=== PATIENT | female | born 1990 | race Caucasian/White ===

== ENCOUNTER 2019-08-30 21:45 | Inpatient (IN) | payer BC ==
[2019-08-30] MEDS: ELECTROLYTE-148 SOLN 1,000 ML IV SCH (23:00)
--- NOTE | 2019-08-30 23:23 | HP ---
Past Medical History - Primary Care Physician PCP:: Emily Taylor - Admission Chief Complaint: 29yo p0 @ 37.1 wks with LOF since 6pm, clear, no VB, no percieved ctx, +FM History of Present Illness: Uncomplicated PNC History Source: Patient, Medical Record Limitations to Obtaining History: No Limitations - Past Medical History ...: 1 ...Para: 0 ...Term: 0 ...: 0 ...Spon : 0 ...Induced : 0 ...LMP: 12/10/18 ... Weeks Gestation by Dates: 37.1 ...EDC by Dates: 09/19/19 - Past Surgical History Past Surgical History: Yes: None Hx Myomectomy: No Hx Transabdominal Cerclage: No - Smoking History Have you smoked in the past 12 months: No - Alcohol/Substance Use Hx Alcohol Use: No History of Substance Use: reports: None - Social History Usual Living Arrangement: Yes: With Spouse History of Recent Travel: No Home Medications - Allergies Allergies/Adverse Reactions: Allergies Allergy/AdvReac Type Severity Reaction Status Date / Time No Known Allergies Allergy Verified 08/30/19 23:59 - Home Medications Home Medications: Ambulatory Orders Vit 93/Iron Fum/Folic [ Formula Tablet] 1 tab PO DAILY Family Medical History Family Hx Cancer: Grandmother (maternal) (Breast CA) Review of Systems - Review of Systems Constitutional: reports: No Symptoms Eyes: reports: No Symptoms HENT: reports: No Symptoms Neck: reports: No Symptoms Cardiovascular: reports: No Symptoms Respiratory: reports: No Symptoms Gastrointestinal: reports: No Symptoms Genitourinary: reports: Other (LOF) Breasts: reports: No Symptoms Reported Musculoskeletal: reports: No Symptoms Integumentary: reports: No Symptoms Neurological: reports: No Symptoms Endocrine: reports: No Symptoms Hematology/Lymphatic: reports: No Symptoms Psychiatric: reports: No Symptoms Pain Intensity: 0 Physical Exam - Maternity Vital Signs: Vital Signs Temperature 98.6 F 08/30/19 22:00 Pulse Rate 65 08/30/19 22:00 Respiratory Rate 20 08/30/19 22:00 Blood Pressure 120/79 08/30/19 22:00 O2 Sat by Pulse Oximetry (%) Constitutional: Yes: Well Nourished, No Distress, Calm Eyes: Yes: WNL, Conjunctiva Clear, EOM Intact HENT: Yes: WNL, Atraumatic, Normocephalic Neck: Yes: WNL, Supple, Trachea Midline Cardiovascular: Yes: WNL, Regular Rate and Rhythm Lungs: Clear to auscultation Breast(s): Yes: WNL - Abdominal Exam/OB Fundal Height: 37 (EFW 6.5lb) Number of Fetuses: Single Presentation: Vertex Contractions: Yes Regularity: Irregular Intensity: Mild Monitor Mode: External Heart Rate (range): 140 Heart Rate Location: Midline Category: I Accelerations: Uniform Decelerations: None - Vaginal Exam/OB Vaginal Bleediing: No Speculum Exam: No Dilatation (cm): 3 Effacement (%): 50% Amniotic Membrane Status: Ruptured Nitrazine Test: Positive Amniotic Fluid: Yes: Clear Presentation: Vertex/Position Station: -2 - Physical Exam Musculoskeletal: Yes: WNL Extremities: Yes: WNL Edema: No Integumentary: Yes: WNL Deep Tendon Reflex Grade: Normal +2 ...Motor Strength: WNL Psychiatric: Yes: WNL, Alert, Oriented Assessment/Plan 29yo P0 @ 37.1 wks with PROM in early labor GBS neg - no need for prophylaxis Admit to L&D IVF, Labs, NPO Start Pitocin to augment labor Pain managment discussed will give as per patient request
[2019-08-30] MEDS ORDERED: BUTORPHANOL TARTRATE 1 MG/ML VIAL IVPB ONE (23:24)
[2019-08-30] MEDS ORDERED: PROMETHAZINE HCL 25 MG/1 ML VIAL IVPUSH ONE (23:24)
[2019-08-30 23:50] LABS: BASO % 0.5 % (0-2.0); EOS % 0.6 % (0-4.5); HEMATOCRIT 34.7 % (32.4-45.2); HEMOGLOBIN 11.8 GM/dL (10.7-15.3); LYMPH % 14.2 % (8-40); MCH 31.8 pg (25.7-33.7); MEAN CELL VOLUME 93.4 fl (80-96); MEAN PLT VOLUME 8.6 fl (7.5-11.1); NEUT % 77.7 % (42.8-82.8); PLATELET COUNT 183 K/MM3 (134-434); RBC 3.71 M/mm3 (3.60-5.2); WHITE BLOOD COUNT 12.9 K/mm3 (4.0-10.0)
[2019-08-31 00:04] LABS: INR 0.96 (0.83-1.09); PROTHROMBIN TIME (PATIENT) 11.3 SEC (9.7-13.0)
[2019-08-31 00:06] LABS: ACTIVATED PTT 26.7 SECONDS (25.2-36.5); BLOOD UREA NITROGEN 10.2 mg/dL (7-18); CALCIUM 8.3 mg/dL (8.5-10.1); CREATININE 0.5 mg/dL (0.55-1.3); POTASSIUM 3.8 mmol/L (3.5-5.1)
[2019-08-31 00:30] VITALS: BMI 31.6
[2019-08-31] MEDS ORDERED: OXYTOCIN 30 UNITS in 0.9% NS 30 UNIT/500 ML INFUS.BAG IVPB ONE (00:33)
[2019-08-31] MEDS: OXYTOCIN 30 UNITS in 0.9% NS 30 UNIT/500 ML INFUS.BAG IVPB SCH (00:35)
[2019-08-31] MEDS ORDERED: BUTORPHANOL TARTRATE 1 MG/ML VIAL ONE ×2 (03:47)
[2019-08-31] MEDS ORDERED: PROMETHAZINE HCL 25 MG/1 ML VIAL ONE (03:47)
[2019-08-31] MEDS ORDERED: FENTANYL/BUPIVACAINE/NS/PF - PCEA - 50 ML DISP.SYRIN EP ONE (05:41)
[2019-08-31] MEDS ORDERED: LIDO 2%/EPI 1:200000 PRESRVFRE (20 ML SDVIAL) ONE (05:50)
[2019-08-31] MEDS: FENTANYL/BUPIVACAINE/NS/PF - PCEA - 50 ML DISP.SYRIN EP SCH (06:05)
[2019-08-31] MEDS ORDERED: NALOXONE HCL 0.4 MG/ML VIAL IVPUSH PRN (06:14)
[2019-08-31] MEDS ORDERED: OXYTOCIN 20 UNITS in 0.9% NS 20 UNIT/1,000 ML INFUS.BAG IV ONE (06:29)
[2019-08-31] MEDS ORDERED: LIDOCAINE HCL 1% PRESERVATIVE FREE - 30ML VIAL ONE (06:30)
[2019-08-31] MEDS ORDERED: BISACODYL 10 MG SUPP.RECT RC PRN (08:38)
[2019-08-31] MEDS ORDERED: WITCH HAZEL 50% (TUCKS) 40 PAD/JAR PAD TP PRN (08:38)
[2019-08-31] MEDS ORDERED: BENZOCAINE 20% 57 GM BOTTLE TP PRN (08:38)
[2019-08-31] MEDS ORDERED: METHYLERGONOVINE MALEATE 0.2 MG/1 ML AMP IM PRN (08:38)
[2019-08-31] MEDS ORDERED: BENZOCAINE 28 GM HEMORRHOIDAL OINTMENT TP PRN (08:38)
--- NOTE | 2019-08-31 08:38 | PN ---
Delivery - Delivery Vaginal Delivery: No Problems Type of Anesthesia: Local, Epidural Episiotomy/Laceration: Midline, 2nd degree EBL (cc): 300 Delivery, Single - Stages of Labor Date 1st Stage Initiatied: 08/30/19 Time 1st Stage Initiated: 22:00 Date 2nd Stage Initiated: 08/31/19 Time 2nd Stage Initiated: 06:15 Date of Delivery: 08/31/19 Time of Delivery: 07:59 Date Placenta Delivered: 08/31/19 Time Placenta Delivered: 08:07 Placenta: Yes: Spontaneous - Condition of Infant Wafer Fabricator/Dairy Technologist Present: No Gender: Female Weight: 6 lb 8 oz Position: Left, OA - 1 Minute Total Score: 9 5 Minutes Total Score: 9 - [place] Feeding Plan Initial Plan: Elected not to breastfeed exclusively throughout hospitalization Benefits of Exclusively reinforced: Yes
[2019-08-31] MEDS ORDERED: D5W-LR W/ 20 UNITS OXYTOCIN 20 UNIT/1,000 ML INFUS.BAG IV SCH (08:45)
[2019-08-31] MEDS ORDERED: IBUPROFEN 600 MG TABLET (FP) PO ONE (09:53)
[2019-08-31] MEDS ORDERED: ACETAMINOPHEN 325 MG TABLET (FP) ONE (09:53)
[2019-08-31] MEDS: IBUPROFEN 600 MG TABLET (FP) PO PRN ×4 (09:59→21:43)
[2019-08-31] MEDS: ACETAMINOPHEN 325 MG TABLET (FP) PO PRN ×4 (09:59→21:43)
[2019-08-31] MEDS: PRENATAL VITAMINS W/ FOLIC ACID TABLET (FP) PO SCH (13:21)
[2019-08-31] MEDS: FERROUS SO4 325 MG TABLET (FP) PO SCH ×2 (13:21→21:43)
[2019-09-01] MEDS: ACETAMINOPHEN 325 MG TABLET (FP) PO PRN ×5 (01:35→22:00)
[2019-09-01] MEDS: IBUPROFEN 600 MG TABLET (FP) PO PRN ×5 (01:35→21:59)
[2019-09-01 08:07] LABS: BASO % 0.7 % (0-2.0); EOS % 0.7 % (0-4.5); HEMATOCRIT 30.7 % (32.4-45.2); HEMOGLOBIN 10.6 GM/dL (10.7-15.3); LYMPH % 11.7 % (8-40); MCH 32.2 pg (25.7-33.7); MCHC 34.4 g/dl (32.0-36.0); MEAN CELL VOLUME 93.7 fl (80-96); MEAN PLT VOLUME 8.3 fl (7.5-11.1); MONO % 7.5 % (3.8-10.2); NEUT % 79.4 % (42.8-82.8); PLATELET COUNT 161 K/MM3 (134-434); RBC 3.28 M/mm3 (3.60-5.2); RDW 13.3 % (11.6-15.6); WHITE BLOOD COUNT 12.2 K/mm3 (4.0-10.0)
[2019-09-01 08:52] LABS: POC NITRAZINE POS
--- NOTE | 2019-09-01 08:58 | PN ---
Post Progress Note - Subjective Subjective: Pt w/o complaints. Feels well. Ambulating Reports breast feeding and bottle. Reports scant lochia Post Day: 2 Type of Delivery: Vital Signs: Vital Signs Temperature 97.5 F L 09/01/19 06:00 Pulse Rate 80 09/01/19 06:00 Respiratory Rate 18 09/01/19 06:00 Blood Pressure 106/57 L 09/01/19 06:00 O2 Sat by Pulse Oximetry (%) 100 08/31/19 09:00 Breast Exam: Yes: Soft Uterus: Yes: Fundus Firm, Fundus below umbilicus Abdomen/GI: Yes: Abdomen soft Lochia: Yes: Rubra Lochia, amount: Small Extremities: Yes: Calves non-tender Perineum: Yes: Intact Activity: Ambulating - Labs Labs: CBC WBC 12.2 K/mm3 (4.0-10.0) H 09/01/19 07:33 RBC 3.28 M/mm3 (3.60-5.2) L 09/01/19 07:33 Hgb 10.6 GM/dL (10.7-15.3) L 09/01/19 07:33 Hct 30.7 % (32.4-45.2) L 09/01/19 07:33 MCV 93.7 fl (80-96) 09/01/19 07:33 MCH 32.2 pg (25.7-33.7) 09/01/19 07:33 MCHC 34.4 g/dl (32.0-36.0) 09/01/19 07:33 RDW 13.3 % (11.6-15.6) 09/01/19 07:33 Plt Count 161 K/MM3 (134-434) 09/01/19 07:33 MPV 8.3 fl (7.5-11.1) 09/01/19 07:33 Absolute Neuts (auto) 9.7 K/mm3 (1.5-8.0) H 09/01/19 07:33 Neutrophils % 79.4 % (42.8-82.8) 09/01/19 07:33 Lymphocytes % 11.7 % (8-40) 09/01/19 07:33 Monocytes % 7.5 % (3.8-10.2) 09/01/19 07:33 Eosinophils % 0.7 % (0-4.5) 09/01/19 07:33 Basophils % 0.7 % (0-2.0) 09/01/19 07:33 Nucleated RBC % 0 % (0-0) 09/01/19 07:33 Assessment/Plan 29yo s/p , doing well stable, afebrile. Asymptomatic for anemia. care instructions reviewed. Continue routine care. Ambulation encouraged Discharge instruction reviewed.
--- NOTE | 2019-09-01 09:11 | DS ---
Physical Exam-BUILDING SERVICES COORDINATOR Vital Signs: Vital Signs Temperature 97.5 F L 09/01/19 06:00 Pulse Rate 80 09/01/19 06:00 Respiratory Rate 18 09/01/19 06:00 Blood Pressure 106/57 L 09/01/19 06:00 O2 Sat by Pulse Oximetry (%) 100 08/31/19 09:00 Constitutional: Yes: Well Nourished, No Distress, Calm Eyes: Yes: WNL, Conjunctiva Clear, EOM Intact HENT: Yes: WNL, Atraumatic, Normocephalic Neck: Yes: WNL, Supple, Trachea Midline Cardiovascular: Yes: WNL, Regular Rate and Rhythm Respiratory: Yes: WNL, Regular, CTA Bilaterally Gastrointestinal: Yes: WNL, Normal Bowel Sounds, Soft ...Rectal Exam: Yes: WNL Renal/: Yes: WNL ....Post : Yes: Uterus firm, Uterus non-tender, Slight lochia rubra Breast(s): Yes: WNL Musculoskeletal: Yes: WNL Extremities: Yes: WNL Edema: No Integumentary: Yes: WNL Neurological: Yes: WNL, Alert, Oriented ...Motor Strength: WNL Psychiatric: Yes: WNL, Alert, Oriented Labs: CBC, BMP 09/01/19 07:33 08/30/19 23:25 Delivery - Delivery Vaginal Delivery: No Problems, Spontaneous Type of Anesthesia: Local, Epidural Episiotomy/Laceration: Midline, 2nd degree EBL (cc): 300 Delivery, Single - Stages of Labor Date 1st Stage Initiatied: 08/30/19 Time 1st Stage Initiated: 22:00 Date 2nd Stage Initiated: 08/31/19 Time 2nd Stage Initiated: 06:15 Date of Delivery: 08/31/19 Time of Delivery: 07:59 Time Placenta Delivered: 08:07 Placenta: Yes: Spontaneous - Condition of Light Rail Transit Operator/Hypo Dipper Present: No Gender: Female Weight: 2.948 kg Position: Left, OA Total Hours ROM (Hrs/Mins): 14x4fol - 1 Minute Total Score: 9 5 Minutes Total Score: 9 - [place] Feeding Plan Initial Plan: Elected not to breastfeed exclusively throughout hospitalization Benefits of Exclusively reinforced: Yes Discharge Summary Problems reviewed: Yes Reason For Visit: LABOR Labor at term Procedures: Principal: Hospital Course: Normal recovery Condition: Good - Instructions Diet, Activity, Other Instructions: Physical activity Resume your normal everyday activity as tolerated no heavy lifting or exercise until seen by your surgeon. You may walk unlimited shahriar of and climb stairs. You may resume driving the car when you feel safe and comfortable behind the wheel. No sexual activity as instructed. Wound care If you have a bandage, leave it on, and keep dry for 48-72 hours. After that time discard the outer bandage. If they are tapes on the skin under the out of bandage leave them in place. They will peel off in the next 7 to 10 days. Do Not Peel them off. You may shower the day after surgery. If there are tapes present on the skin, you may shower over them. Diet There are no dietary restrictions. Eat healthy, high-fiber foods. Drink 6 to 8 glasses of liquid each day. This will assist in keeping your bowels are regular. Pain management You may take Tylenol or acetaminophen or Ibuprofen (for example, Motrin, Advil etc.) from my pain prescription medication is ordered should be taken as prescribed for moderate to severe pain. Call MD for any of the following: Severe pain not relieved by medication Fever of 101 or higher Excessive bleeding or drainage on dressing Inability to urinate Referrals: Keely Alfonso MD [Staff Physician] - Disposition: HOME - Home Medications Comprehensive Discharge Medication List: Ambulatory Orders Vit 93/Iron Fum/Folic [ Formula Tablet] 1 tab PO DAILY Prescription Drug Monitoring Program (I-STOP) results: I-STOP not reviewed
[2019-09-01] MEDS: FENTANYL/BUPIVACAINE/NS/PF - PCEA - 50 ML DISP.SYRIN EP SCH (09:16)
[2019-09-01] MEDS: PRENATAL VITAMINS W/ FOLIC ACID TABLET (FP) PO SCH (09:50)
[2019-09-01] MEDS: FERROUS SO4 325 MG TABLET (FP) PO SCH ×2 (09:50→21:59)
[2019-09-01] MEDS: OXYTOCIN 30 UNITS in 0.9% NS 30 UNIT/500 ML INFUS.BAG IVPB SCH (20:40)
[2019-09-01] MEDS: ELECTROLYTE-148 SOLN 1,000 ML IV SCH (20:40)
[2019-09-01] MEDS ORDERED: SENNOSIDES/DOCUSATE COMBO (SENNA PLUS) TABLET (UD) PO PRN (22:00)
[2019-09-02] MEDS: IBUPROFEN 600 MG TABLET (FP) PO PRN (06:12)
[2019-09-02] MEDS: ACETAMINOPHEN 325 MG TABLET (FP) PO PRN (06:12)
--- NOTE | 2019-09-02 07:42 | PN ---
Post Progress Note - Subjective Subjective: Patient without acute complaints. Reports tolerating oral intake without nausea or vomiting. Ambulating without dizziness. Denies fevers or chills. Pain well controlled with oral pain medication. without difficulty. Passing flatus. Post Day: 2 Type of Delivery: Vital Signs: Vital Signs Temperature 97.7 F 09/01/19 22:00 Pulse Rate 74 09/01/19 22:00 Respiratory Rate 18 09/01/19 22:00 Blood Pressure 123/78 09/01/19 22:00 O2 Sat by Pulse Oximetry (%) 100 08/31/19 09:00 Breast Exam: Yes: Soft Uterus: Yes: Fundus Firm, Fundus below umbilicus Abdomen/GI: Yes: Abdomen soft, Passing flatus, Tolerating PO. No: Abdominal Distention, Tender Lochia: Yes: Rubra Lochia, amount: Moderate Extremities: Yes: Calves non-tender. No: Edema Activity: Ambulating - Labs Labs: CBC WBC 12.2 K/mm3 (4.0-10.0) H 09/01/19 07:33 RBC 3.28 M/mm3 (3.60-5.2) L 09/01/19 07:33 Hgb 10.6 GM/dL (10.7-15.3) L 09/01/19 07:33 Hct 30.7 % (32.4-45.2) L 09/01/19 07:33 MCV 93.7 fl (80-96) 09/01/19 07:33 MCH 32.2 pg (25.7-33.7) 09/01/19 07:33 MCHC 34.4 g/dl (32.0-36.0) 09/01/19 07:33 RDW 13.3 % (11.6-15.6) 09/01/19 07:33 Plt Count 161 K/MM3 (134-434) 09/01/19 07:33 MPV 8.3 fl (7.5-11.1) 09/01/19 07:33 Absolute Neuts (auto) 9.7 K/mm3 (1.5-8.0) H 09/01/19 07:33 Neutrophils % 79.4 % (42.8-82.8) 09/01/19 07:33 Lymphocytes % 11.7 % (8-40) 09/01/19 07:33 Monocytes % 7.5 % (3.8-10.2) 09/01/19 07:33 Eosinophils % 0.7 % (0-4.5) 09/01/19 07:33 Basophils % 0.7 % (0-2.0) 09/01/19 07:33 Nucleated RBC % 0 % (0-0) 09/01/19 07:33 Assessment/Plan 29 yo PPD # 2 s/p , afebrile, vital signs stable, doing well 1. Patient stable for discharge home today. 2. Patient encouraged to contact MD for: - Severe pain not controlled by oral pain medication - Fevers or chills - Nausea or vomiting, intolerance of oral intake 3. Patient to follow up in office in 4-6 weeks for visit
[2019-09-02] MEDS: FERROUS SO4 325 MG TABLET (FP) PO SCH (10:06)
[2019-09-02] MEDS: PRENATAL VITAMINS W/ FOLIC ACID TABLET (FP) PO SCH (10:06)
[2019-09-02 16:38] VITALS: BP 118/76; PULSE 70; TEMP 98
== END 2019-09-02 11:00 | disposition home or self-care (01) | DRG 807 ==
LOC: JDEL 21:45 → JLDR 22:00 → J3W 08-31 10:15
PROVIDERS: ADMIT Obstetrics & Gynecology; ATTEND Obstetrics & Gynecology
PROC: 0KQM0ZZ Repair Perineum Muscle, Open Approach (ICD-10-PCS; principal; 2019-08-31)
PROC: 10E0XZZ Delivery of Products of Conception, External Approach (ICD-10-PCS; 2019-08-31)
DX: O70.1 Second degree perineal laceration during delivery (principal); Z37.0 Single live birth; Z3A.37 37 weeks gestation of pregnancy
CPT/HCPCS: 36415; 36600; 59025; 59409; 80048; 82803; 83986-QW; 85025; 85610; 85730; 86593; 86850; 86900; 86901

== ENCOUNTER 2020-11-17 05:52 | Inpatient (IN) | payer BC ==
[2020-11-17] MEDS ORDERED: ELECTROLYTE-148 SOLN 1,000 ML IV SCH (07:45)
[2020-11-17 08:11] VITALS: BMI 32.1
[2020-11-17 08:18] LABS: BASO % 0.3 % (0-2.0); EOS % 0.1 % (0-4.5); HEMATOCRIT 32.2 % (32.4-45.2); HEMOGLOBIN 11.5 GM/dL (10.7-15.3); LYMPH % 9.3 % (8-40); MCHC 35.7 g/dl (32.0-36.0); MEAN CELL VOLUME 95.3 fl (80-96); MEAN PLT VOLUME 8.7 fl (7.5-11.1); MONO % 5.5 % (3.8-10.2); NEUT % 84.8 % (42.8-82.8); PLATELET COUNT 162 K/MM3 (134-434); RBC 3.38 M/mm3 (3.60-5.2); RDW 12.8 % (11.6-15.6); WHITE BLOOD COUNT 12.9 K/mm3 (4.0-10.0)
[2020-11-17 08:19] LABS: INR 0.98 (0.83-1.09); PROTHROMBIN TIME (PATIENT) 11.9 SEC (9.7-13.0)
[2020-11-17 08:22] LABS: ACTIVATED PTT 24.7 SECONDS (25.2-36.5)
[2020-11-17 08:24] LABS: CALCIUM 7.8 mg/dL (8.5-10.1)
[2020-11-17 08:25] LABS: BLOOD UREA NITROGEN 9.9 mg/dL (7-18)
[2020-11-17 08:28] LABS: CREATININE 0.6 mg/dL (0.55-1.3)
[2020-11-17] MEDS ORDERED: PCA PUMP NR ONE (09:11)
[2020-11-17] MEDS ORDERED: FENTANYL/BUPIVACAINE/NS/PF - PCEA - 50 ML DISP.SYRIN EP ONE (09:11)
[2020-11-17] MEDS ORDERED: BUPIVACAINE HCL/PF 0.25% (2.5MG/ML) 10 ML VIAL ONE (09:13)
[2020-11-17] MEDS ORDERED: NALOXONE HCL 0.4 MG/ML VIAL IVPUSH PRN ×2 (10:53→10:54)
[2020-11-17] MEDS ORDERED: FENTANYL/BUPIVACAINE/NS/PF - PCEA - 50 ML DISP.SYRIN EP SCH ×2 (11:00)
[2020-11-17] MEDS ORDERED: OXYTOCIN 30 UNITS in 0.9% NS 30 UNIT/500 ML INFUS.BAG IVPB ONE (11:08)
[2020-11-17] MEDS ORDERED: OXYTOCIN 30 UNITS in 0.9% NS 30 UNIT/500 ML INFUS.BAG IVPB SCH (11:15)
[2020-11-17] MEDS ORDERED: OXYTOCIN 20 UNITS in 0.9% NS 20 UNIT/1,000 ML INFUS.BAG IV ONE (13:58)
[2020-11-17] MEDS ORDERED: WITCH HAZEL 50% (TUCKS) 40 PAD/JAR PAD TP PRN (14:50)
[2020-11-17] MEDS ORDERED: BENZOCAINE 28 GM HEMORRHOIDAL OINTMENT TP PRN (14:50)
[2020-11-17] MEDS ORDERED: METHYLERGONOVINE MALEATE 0.2 MG/1 ML AMP IM PRN (14:50)
[2020-11-17] MEDS ORDERED: BISACODYL 10 MG SUPP.RECT RC PRN (14:50)
[2020-11-17] MEDS ORDERED: BENZOCAINE 20% 57 GM BOTTLE TP PRN (14:50)
[2020-11-17] MEDS ORDERED: OXYTOCIN 20 UNITS in 0.9% NS 20 UNIT/1,000 ML INFUS.BAG IV SCH (15:00)
[2020-11-17] MEDS ORDERED: IBUPROFEN 600 MG TABLET (FP) PO ONE (16:14)
[2020-11-17] MEDS ORDERED: ACETAMINOPHEN 325 MG TABLET (FP) ONE (16:14)
[2020-11-17] MEDS: ACETAMINOPHEN 325 MG TABLET (FP) PO PRN ×2 (16:15→21:32)
[2020-11-17] MEDS: IBUPROFEN 600 MG TABLET (FP) PO PRN ×2 (16:15→21:33)
[2020-11-17] MEDS: FERROUS SO4 325 MG TABLET (FP) PO SCH (18:26)
[2020-11-18] MEDS: ACETAMINOPHEN 325 MG TABLET (FP) PO PRN ×3 (02:40→21:25)
[2020-11-18] MEDS: IBUPROFEN 600 MG TABLET (FP) PO PRN ×3 (02:40→21:25)
[2020-11-18 07:20] LABS: BASO % 0.7 % (0-2.0); HEMATOCRIT 30.6 % (32.4-45.2); HEMOGLOBIN 10.8 GM/dL (10.7-15.3); LYMPH % 13.1 % (8-40); MCH 34.3 pg (25.7-33.7); MCHC 35.4 g/dl (32.0-36.0); MEAN CELL VOLUME 96.9 fl (80-96); MEAN PLT VOLUME 8.8 fl (7.5-11.1); MONO % 7.3 % (3.8-10.2); NEUT % 77.9 % (42.8-82.8); PLATELET COUNT 146 K/MM3 (134-434); RBC 3.16 M/mm3 (3.60-5.2); WHITE BLOOD COUNT 10.3 K/mm3 (4.0-10.0)
[2020-11-18] MEDS: PRENATAL VITAMINS W/ FOLIC ACID TABLET (FP) PO SCH (10:34)
[2020-11-18] MEDS: FERROUS SO4 325 MG TABLET (FP) PO SCH ×2 (10:34→18:22)
[2020-11-18] MEDS ORDERED: FENTANYL/BUPIVACAINE/NS/PF - PCEA - 50 ML DISP.SYRIN EP SCH (11:00)
[2020-11-18] MEDS ORDERED: SENNOSIDES/DOCUSATE COMBO (SENNA PLUS) TABLET (UD) PO PRN (22:00)
[2020-11-19] MEDS: ACETAMINOPHEN 325 MG TABLET (FP) PO PRN (05:48)
[2020-11-19] MEDS: IBUPROFEN 600 MG TABLET (FP) PO PRN (05:48)
[2020-11-19 09:07] VITALS: BP 121/71; PULSE 79; TEMP 97.7
[2020-11-19] MEDS: FERROUS SO4 325 MG TABLET (FP) PO SCH (09:35)
[2020-11-19] MEDS: PRENATAL VITAMINS W/ FOLIC ACID TABLET (FP) PO SCH (09:35)
== END 2020-11-19 11:30 | disposition home or self-care (01) | DRG 807 ==
LOC: JDEL 05:52 → JLDR 06:45 → J3W 19:57
PROVIDERS: ADMIT Obstetrics & Gynecology; ATTEND Obstetrics & Gynecology
PROC: 10E0XZZ Delivery of Products of Conception, External Approach (ICD-10-PCS; principal; 2020-11-17)
PROC: 0W8NXZZ Division of Female Perineum, External Approach (ICD-10-PCS; 2020-11-17)
DX: O80 Encounter for full-term uncomplicated delivery (principal); Z37.0 Single live birth; Z3A.37 37 weeks gestation of pregnancy
CPT/HCPCS: 36415; 59409; 80048; 85025; 85610; 85730; 86780; 86850; 86900; 86901; C9803; U0003

== ENCOUNTER 2022-09-14 15:00 | Inpatient (IN) | payer BC ==
[2022-09-14] MEDS: ELECTROLYTE-148 SOLN 1,000 ML IV SCH ×2 (15:30→18:00)
[2022-09-14 15:38] LABS: BASO % 0.5 % (0-2.0); EOS % 0.2 % (0-4.5); HEMATOCRIT 33.1 % (32.4-45.2); HEMOGLOBIN 11.8 GM/dL (10.7-15.3); LYMPH % 12.9 % (8-40); MCH 33.7 pg (25.7-33.7); MCHC 35.7 g/dl (32.0-36.0); MEAN CELL VOLUME 94.3 fl (80-96); MEAN PLT VOLUME 7.8 fl (7.5-11.1); MONO % 6.2 % (3.8-10.2); NEUT % 80.2 % (42.8-82.8); PLATELET COUNT 190 10^3/uL (134-434); RBC 3.51 M/mm3 (3.60-5.2); WHITE BLOOD COUNT 10.2 K/mm3 (4.0-10.0)
[2022-09-14 15:43] LABS: INR 0.97 (0.83-1.09); PROTHROMBIN TIME (PATIENT) 11.1 SEC (9.7-13.0)
[2022-09-14 15:46] LABS: ACTIVATED PTT 28.1 SECONDS (25.2-36.5)
[2022-09-14 16:10] LABS: BLOOD UREA NITROGEN 8.9 mg/dL (7-18); CALCIUM 8.1 mg/dL (8.5-10.1)
[2022-09-14 16:13] LABS: CREATININE 0.6 mg/dL (0.55-1.3)
[2022-09-14 16:21] VITALS: BMI 33.5
[2022-09-14] MEDS ORDERED: FENTANYL/BUPIVACAINE/NS/PF - PCEA - 50 ML DISP.SYRIN EP ONE (17:42)
[2022-09-14] MEDS ORDERED: NALOXONE HCL 0.4 MG/ML VIAL IVPUSH PRN (18:17)
[2022-09-14] MEDS ORDERED: FENTANYL/BUPIVACAINE/NS/PF - PCEA - 50 ML DISP.SYRIN EP SCH (18:30)
[2022-09-14] MEDS ORDERED: ACETAMINOPHEN 325 MG TABLET (FP) PO PRN (19:18)
[2022-09-14] MEDS ORDERED: oxyCODONE HCL 5 MG TABLET PO PRN (19:18)
[2022-09-14] MEDS ORDERED: METHYLERGONOVINE MALEATE 0.2 MG/1 ML AMP IM PRN (19:18)
[2022-09-14] MEDS ORDERED: WITCH HAZEL 50% (TUCKS) 40 PAD/JAR PAD TP PRN (19:18)
[2022-09-14] MEDS ORDERED: BISACODYL 10 MG SUPP.RECT RC PRN (19:18)
[2022-09-14] MEDS ORDERED: BENZOCAINE 28 GM HEMORRHOIDAL OINTMENT TP PRN (19:18)
[2022-09-14] MEDS ORDERED: BENZOCAINE 20% 57 GM BOTTLE TP PRN (19:18)
[2022-09-14] MEDS ORDERED: OXYTOCIN 20 UNITS in 0.9% NS 20 UNIT/1,000 ML INFUS.BAG IV SCH (19:30)
[2022-09-14] MEDS ORDERED: OXYTOCIN 30 UNITS in 0.9% NS 30 UNIT/500 ML INFUS.BAG IVPB SCH (19:30)
[2022-09-14] MEDS ORDERED: OXYTOCIN 20 UNITS in 0.9% NS 20 UNIT/1,000 ML INFUS.BAG IV ONE (21:32)
[2022-09-14] MEDS ORDERED: LIDOCAINE HCL 1% PRESERVATIVE FREE - 30ML VIAL ONE (21:45)
[2022-09-14 22:44] LABS: CORD BASE EXCESS -1.3 mmol/L (0-2); CORD HCO3 24.2 mmHg (20-29); CORD PCO2 43.4 mmHg (30-78); CORD pH 7.364 (7.14-7.44)
[2022-09-14 22:47] LABS: CORD HCO3 22.8 mmHg (20-29); CORD PCO2 46.7 mmHg (30-78); CORD pH 7.306 (7.14-7.44)
[2022-09-15] MEDS: IBUPROFEN 600 MG TABLET (FP) PO PRN ×4 (05:56→23:23)
[2022-09-15 09:08] LABS: BASO % 0.4 % (0-2.0); EOS % 0.4 % (0-4.5); HEMATOCRIT 31.7 % (32.4-45.2); HEMOGLOBIN 11.4 GM/dL (10.7-15.3); MCH 33.9 pg (25.7-33.7); MEAN CELL VOLUME 94.3 fl (80-96); MEAN PLT VOLUME 7.5 fl (7.5-11.1); MONO % 6.4 % (3.8-10.2); NEUT % 81.8 % (42.8-82.8); PLATELET COUNT 165 10^3/uL (134-434); RBC 3.36 M/mm3 (3.60-5.2)
[2022-09-15] MEDS: PRENATAL VITAMINS W/ FOLIC ACID TABLET (FP) PO SCH (09:52)
[2022-09-15] MEDS ORDERED: FLU VACC QS2022-23(6MOS UP)/PF 60 MCG/0.5 ML SYRINGE IM ONE (10:00)
[2022-09-15 17:47] VITALS: RESP 18
[2022-09-15] MEDS ORDERED: SENNOSIDES/DOCUSATE COMBO (SENNA PLUS) TABLET (UD) PO PRN (22:00)
[2022-09-16] MEDS: IBUPROFEN 600 MG TABLET (FP) PO PRN ×2 (05:21→09:29)
[2022-09-16 09:07] VITALS: BP 114/81; PULSE 81; TEMP 98
[2022-09-16] MEDS: PRENATAL VITAMINS W/ FOLIC ACID TABLET (FP) PO SCH (09:29)
== END 2022-09-16 12:25 | disposition home or self-care (01) | DRG 807 ==
LOC: JLDR 15:00 → J3W 09-15 00:04
PROVIDERS: ADMIT Obstetrics & Gynecology; ATTEND Obstetrics & Gynecology
PROC: 10E0XZZ Delivery of Products of Conception, External Approach (ICD-10-PCS; principal; 2022-09-14)
PROC: 0KQM0ZZ Repair Perineum Muscle, Open Approach (ICD-10-PCS; 2022-09-14)
PROC: 10907ZC Drainage of Amniotic Fluid, Therapeutic from Products of Conception, Via Natural or Artificial Opening (ICD-10-PCS; 2022-09-14)
PROC: 0W8NXZZ Division of Female Perineum, External Approach (ICD-10-PCS; 2022-09-14)
DX: O62.0 Primary inadequate contractions (principal); Z37.0 Single live birth; O70.1 Second degree perineal laceration during delivery; Z3A.38 38 weeks gestation of pregnancy
CPT/HCPCS: 36415; 36600; 59025; 59409; 80048; 82803; 85025; 85610; 85730; 86780; 86850; 86900; 86901; C9803-CS; Q2036; U0003; U0005

== ENCOUNTER 2024-12-25 | Inpatient (IN) | payer BC ==
[2024-12-25] MEDS ORDERED: BISACODYL 10 MG SUPP.RECT RC PRN (01:36)
[2024-12-25] MEDS ORDERED: METHYLERGONOVINE MALEATE 0.2 MG/1 ML AMP IM PRN (01:36)
[2024-12-25] MEDS ORDERED: oxyCODONE HCL 5 MG TABLET PO PRN (01:36)
[2024-12-25] MEDS: OXYTOCIN 20 UNITS in 0.9% NS 20 UNIT/1,000 ML INFUS.BAG IV SCH (01:45)
[2024-12-25] MEDS ORDERED: IBUPROFEN 600 MG TABLET (FP) PO ONE (02:00)
[2024-12-25] MEDS: IBUPROFEN 600 MG TABLET (FP) PO PRN (02:03)
[2024-12-25 02:22] LABS: BASO % 0.3 % (0-2.0); EOS % 0.6 % (0-4.5); HEMATOCRIT 32.4 % (32.4-45.2); HEMOGLOBIN 11.2 GM/dL (10.7-15.3); LYMPH % 9.7 % (8-40); MCH 33.2 pg (25.7-33.7); MCHC 34.5 g/dl (32.0-36.0); MEAN CELL VOLUME 96.4 fl (80-96); MEAN PLT VOLUME 8.6 fl (7.5-11.1); MONO % 5.7 % (3.8-10.2); NEUT % 83.7 % (42.8-82.8); PLATELET COUNT 170 10^3/uL (134-434); RBC 3.36 M/mm3 (3.60-5.2); RDW 13.8 % (11.6-15.6); WHITE BLOOD COUNT 15.1 K/mm3 (4.0-10.0)
[2024-12-25 02:35] VITALS: BMI 31.5
[2024-12-25 02:36] LABS: INR 0.94 (0.83-1.09); PROTHROMBIN TIME (PATIENT) 10.3 SEC (9.7-13.0)
[2024-12-25 02:39] LABS: ACTIVATED PTT 24.9 SECONDS (25.2-36.5)
[2024-12-25 02:55] LABS: CALCIUM 8.3 mg/dL (8.5-10.1)
[2024-12-25 02:56] LABS: BLOOD UREA NITROGEN 13.8 mg/dL (7-18)
[2024-12-25 02:59] LABS: CREATININE 0.7 mg/dL (0.55-1.3)
[2024-12-25] MEDS ORDERED: ACETAMINOPHEN 325 MG TABLET (FP) ONE (03:28)
[2024-12-25] MEDS: ACETAMINOPHEN 325 MG TABLET (FP) PO PRN (03:30)
[2024-12-25] MEDS: WITCH HAZEL 50% (TUCKS) 40 PAD/JAR PAD TP PRN (04:12)
[2024-12-25] MEDS: BENZOCAINE 20% 57 GM BOTTLE TP PRN (04:12)
[2024-12-25] MEDS: BENZOCAINE 28 GM HEMORRHOIDAL OINTMENT TP PRN (04:13)
[2024-12-25] MEDS: PRENATAL VITAMINS W/ FOLIC ACID TABLET (FP) PO SCH (10:24)
[2024-12-26 08:20] LABS: HEMATOCRIT 29.6 % (32.4-45.2); HEMOGLOBIN 10.3 GM/dL (10.7-15.3); MCH 33.7 pg (25.7-33.7); MCHC 34.7 g/dl (32.0-36.0); MEAN CELL VOLUME 97.2 fl (80-96); MEAN PLT VOLUME 8.3 fl (7.5-11.1); PLATELET COUNT 168 10^3/uL (134-434); RBC 3.05 M/mm3 (3.60-5.2); RDW 13.9 % (11.6-15.6); WHITE BLOOD COUNT 7.9 K/mm3 (4.0-10.0)
[2024-12-26 09:11] LABS: ANISOCYTOSIS 0; MACROCYTOSIS 0
[2024-12-26] MEDS ORDERED: SENNOSIDES/DOCUSATE COMBO (SENNA PLUS) TABLET (UD) PO PRN (22:00)
[2024-12-26 23:45] VITALS: BP 113/76; PULSE 63; RESP 18; TEMP 98.3
== END 2024-12-27 11:00 | disposition home or self-care (01) | DRG 807 ==
LOC: JLDR → J3W 03:45
PROVIDERS: ADMIT Obstetrics & Gynecology; ATTEND Obstetrics & Gynecology
PROC: 10E0XZZ Delivery of Products of Conception, External Approach (ICD-10-PCS; principal; 2024-12-26)
PROC: 0W8NXZZ Division of Female Perineum, External Approach (ICD-10-PCS; 2024-12-26)
DX: O80 Encounter for full-term uncomplicated delivery (principal); Z37.0 Single live birth; Z3A.37 37 weeks gestation of pregnancy
CPT/HCPCS: 36415; 59409; 80048; 85025; 85610; 85730; 86780; 86850; 86900; 86901